=== PATIENT | female | born 1970 | race African-American/Black ===

== ENCOUNTER 2022-01-22 11:35 | Outpatient (CLI) | payer OTHER, SELFPAY ==
[2022-01-24 07:20] LABS: CA-125 10 U/mL (<35)
== END 2022-01-22 11:36 | disposition home or self-care (01) ==
LOC: ANHLAB 11:37
PROVIDERS: PCP Internal Medicine Geriatric Medicine; Visit Provider Obstetrics & Gynecology
DX: N83.209 Unspecified ovarian cyst, unspecified side (principal)
CPT/HCPCS: 36415; 86304